=== PATIENT | male | born 1955 | race Caucasian/White ===

== ENCOUNTER → 2017-05-30 | Outpatient (CLI) | payer OTHER | END | disposition home or self-care (01) | LOC: ROC 10:02 | PROVIDERS: ATTEND Radiology Radiation Oncology | DX: C14.8 Malignant neoplasm of overlapping sites of lip, oral cavity and pharynx (principal) | CPT/HCPCS: 99214; G0463 ==

== ENCOUNTER → 2017-06-05 | Outpatient (CLI) | payer OTHER | END | disposition home or self-care (01) | LOC: PETCFH 08:48 | PROVIDERS: ATTEND Specialist | DX: C09.8 Malignant neoplasm of overlapping sites of tonsil (principal); R59.0 Localized enlarged lymph nodes; R91.1 Solitary pulmonary nodule; J98.11 Atelectasis | CPT/HCPCS: 78815; A9552 ==

== ENCOUNTER 2017-07-10 06:48 | Day surgery (SDC) | payer OTHER ==
[~2017-07-10] VITALS: Ht 175.3 cm; Wt 78.8 kg
[2017-07-10] MEDS ORDERED: SODIUM CHLORIDE 0.9% 1,000 ML IV SCH (07:14)
[2017-07-10] MEDS ORDERED: CEFAZOLIN PMX 1GM/50ML 50 ML ONE (07:16)
[2017-07-10] MEDS ORDERED: CEFAZOLIN PMX 1GM/50ML 50 ML IV ONE (07:30)
[2017-07-10 07:39] VITALS: BP 131/83
[2017-07-10] MEDS ORDERED: ASPI-496 PO (07:48)
[2017-07-10] MEDS ORDERED: ATEN25TA PO (07:48)
[2017-07-10] MEDS ORDERED: ATOR10TA9 PO (07:48)
[2017-07-10] MEDS ORDERED: NALOXONE 1 MG/ML, 2ML ONE (08:21)
[2017-07-10] MEDS ORDERED: MIDAZOLAM 1 MG/ML, 5ML ONE ×3 (08:21→08:24)
[2017-07-10] MEDS ORDERED: FLUMAZENIL 0.1 MG/1 ML, 5ML ONE (08:21)
[2017-07-10] MEDS ORDERED: FENTANYL PF 100 MCG/2ML ONE ×2 (08:21→08:24)
[2017-07-10] MEDS ORDERED: LIDOCAINE 2%, 20ML ONE (08:37)
[2017-07-10] MEDS ORDERED: LIDOCAINE GEL 2%, 5ML ONE (08:45)
[2017-07-10] MEDS ORDERED: VISIPAQUE 270 MG/ML, 50ML BOTTLE ONE (10:37)
== END 2017-07-10 12:15 ==
LOC: OUT 06:48
PROVIDERS: ATTEND Specialist
DX: C09.9 Malignant neoplasm of tonsil, unspecified (principal)
CPT/HCPCS: 49440; 99156; 99157; C1725; C1729; C1751; C1769; C1892; J0690; J2250; J3010; J3490; J7030; Q9966; J2310

== ENCOUNTER → 2017-08-19 | Outpatient (CLI) | payer OTHER ==
[~2017-08-19] MED LIST: ASPI-496 PO; ATEN25TA PO; ATOR10TA9 PO; ONDA8TAB12 PO; OXYC5CAP2 PO
== END | disposition home or self-care (01) ==
LOC: ROC 13:43
PROVIDERS: ATTEND Radiology Radiation Oncology
DX: Z08 Encounter for follow-up examination after completed treatment for malignant neoplasm (principal); C09.9 Malignant neoplasm of tonsil, unspecified
CPT/HCPCS: 99212; G0463

== ENCOUNTER → 2017-08-27 | Outpatient (CLI) | payer OTHER | END | disposition home or self-care (01) | LOC: RAD 15:31 | PROVIDERS: ATTEND Specialist | DX: R06.02 Shortness of breath (principal); C09.9 Malignant neoplasm of tonsil, unspecified; C77.9 Secondary and unspecified malignant neoplasm of lymph node, unspecified | CPT/HCPCS: 71046 ==

== ENCOUNTER → 2017-08-28 | Outpatient (CLI) | payer OTHER | END | disposition home or self-care (01) | LOC: ROC 10:04 | PROVIDERS: ATTEND Radiology Radiation Oncology | DX: C09.9 Malignant neoplasm of tonsil, unspecified (principal) | CPT/HCPCS: 99212; G0463 ==

== ENCOUNTER 2017-08-29 16:21 | Inpatient (IN) | payer OTHER ==
[~2017-08-29] VITALS: Ht 175.3 cm; Wt 74.3 kg
[~2017-08-29 16:21] MED LIST changes: -OMNIPAQUE 350 MG/ML, 100ML BOTTLE ONE
[2017-08-29] MEDS ORDERED: PLEASE ENTER HEIGHT AND WEIGHT MC SCH (17:00)
[2017-08-29] MEDS ORDERED: SODIUM CHLORIDE FLUSH 10ML SYR IVF ONE (17:00)
[2017-08-29 17:06] LABS: BASOPHILS # (AUTO) 0.02 x10^3/uL (0-0.1); BASOPHILS % (AUTO) 1 % (0-1); EOSINOPHILS % (AUTO) 2 % (1-7); LYMPHOCYTES # (AUTO) 0.35 x10^3/uL (1-3.4); LYMPHOCYTES % (AUTO) 7 % (22-44); MD NO; MEAN CORPUSCULAR HEMOGLOBIN 35.1 pg (27.5-34.5); MEAN CORPUSCULAR HGB CONC 34.1 g/dL (33.2-36.2); MEAN CORPUSCULAR VOLUME 102.9 fL (81-97); MONOCYTES # (AUTO) 0.35 x10^3/uL (0.2-0.8); MONOCYTES % (AUTO) 7 % (2-9); NEUTROPHILS # (AUTO) 3.89 x10^3/uL (1.8-6.8); NEUTROPHILS % (AUTO) 83 % (42-75); PLATELET COUNT 192 x10^3/uL (130-400); RED BLOOD COUNT 3.08 x10^6/uL (4.38-5.82); RED CELL DISTRIBUTION WIDTH 19.1 % (9.4-14.8)
[2017-08-29 17:14] LABS: ALBUMIN 2.3 g/dL (3.4-5.0); ANION GAP 7 mmol/L (5-15); CALCIUM 9.2 mg/dL (8.5-10.1); CHLORIDE 93 mmol/L (98-107); CREATININE 0.87 mg/dL (0.7-1.3)
[2017-08-29 17:24] LABS: INTERNATIONAL NORMALIZED RATIO 1.27 (0.93-1.1)
[2017-08-29] MEDS ORDERED: ENOXAPARIN 80 MG/0.8 ML SQ SCH (17:30)
[2017-08-29] MEDS ORDERED: SODIUM CHLORIDE FLUSH 10ML SYR IVF PRN (18:00)
[2017-08-29] MEDS ORDERED: SODIUM CHLORIDE 0.9% 1,000 ML IV SCH (18:17)
[2017-08-29] MEDS ORDERED: DOCUSATE 100 MG CAPSULE PO PRN (18:30)
[2017-08-29] MEDS ORDERED: ACETAMINOPHEN 325 MG TABLET PO PRN (18:30)
[2017-08-29] MEDS ORDERED: ONDANSETRON 2MG/ML, 2ML IVPush PRN (18:30)
[2017-08-29 19:06] LABS: FOLATE LEVEL 18.6 ng/mL (3.1-17.5); THYROID STIMULATING HORMONE 2.85 mIU/L (0.358-3.740)
[2017-08-29] MEDS: OXYcodone IR 5MG TABLET PO SCH ×2 (20:44→23:57)
[2017-08-29] MEDS: ONDANSETRON ODT 8 MG PO SCH (20:51)
[2017-08-29] MEDS: ENOXAPARIN 80 MG/0.8 ML SQ SCH (20:52)
[2017-08-29 21:00] VITALS: BP 115/73
[2017-08-29] MEDS: GUAIFENESIN/DM 200-20MG, 10ML UDC PO PRN (23:58)
[2017-08-30 00:02] LABS: MICROSCOPIC NOT IND
[2017-08-30 00:10] LABS: CULTURE INDICATED? NO
[2017-08-30 01:19] VITALS: BP 117/72
[2017-08-30] MEDS: OXYcodone IR 5MG TABLET PO SCH (03:24)
[2017-08-30 05:31] LABS: BASOPHILS # (AUTO) 0.01 x10^3/uL (0-0.1); BASOPHILS % (AUTO) 0 % (0-1); EOSINOPHILS # (AUTO) 0.13 x10^3/uL (0-0.4); EOSINOPHILS % (AUTO) 5 % (1-7); LYMPHOCYTES # (AUTO) 0.31 x10^3/uL (1-3.4); LYMPHOCYTES % (AUTO) 11 % (22-44); MD NO; MEAN CORPUSCULAR HEMOGLOBIN 35.5 pg (27.5-34.5); MEAN CORPUSCULAR HGB CONC 34.3 g/dL (33.2-36.2); MEAN CORPUSCULAR VOLUME 103.5 fL (81-97); MEAN PLATELET VOLUME 8.1 fL (7.4-10.4); MONOCYTES % (AUTO) 11 % (2-9); NEUTROPHILS # (AUTO) 2.04 x10^3/uL (1.8-6.8); NEUTROPHILS % (AUTO) 73 % (42-75); PLATELET COUNT 147 x10^3/uL (130-400); RED BLOOD COUNT 2.48 x10^6/uL (4.38-5.82); RED CELL DISTRIBUTION WIDTH 19.1 % (9.4-14.8)
[2017-08-30 05:37] LABS: ANION GAP 7 mmol/L (5-15); CALCIUM 9.1 mg/dL (8.5-10.1); CHLORIDE 97 mmol/L (98-107); CREATININE 0.76 mg/dL (0.7-1.3)
[2017-08-30] MEDS: GUAIFENESIN/DM 200-20MG, 10ML UDC PO PRN ×3 (06:15→20:19)
[2017-08-30] MEDS: ONDANSETRON ODT 8 MG PO SCH ×4 (06:15→20:19)
[2017-08-30] MEDS: OXYcodone 5 MG/5 ML ORAL.SOL UDC PO SCH ×6 (06:15→23:12)
[2017-08-30 07:41] VITALS: BP 118/74
[2017-08-30] MEDS: ENOXAPARIN 80 MG/0.8 ML SQ SCH ×2 (09:34→20:20)
[2017-08-30 16:43] VITALS: BP 127/77
[2017-08-30 20:05] VITALS: BP 113/72
[2017-08-30] MEDS: SODIUM CHLORIDE 0.9% 1,000 ML IV SCH (20:20)
[2017-08-30] MEDS: TEMAZEPAM 15 MG CAPSULE PO PRN (23:12)
[2017-08-31 01:07] VITALS: BP 120/70
[2017-08-31] MEDS: GUAIFENESIN/DM 200-20MG, 10ML UDC PO PRN ×3 (02:22→20:02)
[2017-08-31] MEDS: OXYcodone 5 MG/5 ML ORAL.SOL UDC PO SCH ×7 (02:22→23:13)
[2017-08-31] MEDS: SODIUM CHLORIDE 0.9% 1,000 ML IV SCH (05:14)
[2017-08-31] MEDS: ONDANSETRON ODT 8 MG PO SCH ×4 (05:16→21:30)
[2017-08-31 05:59] LABS: CHLORIDE 101 mmol/L (98-107); MEAN CORPUSCULAR HGB CONC 34.9 g/dL (33.2-36.2); MEAN PLATELET VOLUME 7.9 fL (7.4-10.4); PLATELET COUNT 172 x10^3/uL (130-400); RED BLOOD COUNT 2.42 x10^6/uL (4.38-5.82); RED CELL DISTRIBUTION WIDTH 19.2 % (9.4-14.8)
[2017-08-31 06:06] LABS: ANION GAP 8 mmol/L (5-15); CREATININE 0.72 mg/dL (0.7-1.3)
[2017-08-31 07:15] LABS: BASOPHILS # (AUTO) 0.01 x10^3/uL (0-0.1); BASOPHILS % (AUTO) 0 % (0-1); EOSINOPHILS # (AUTO) 0.08 x10^3/uL (0-0.4); EOSINOPHILS % (AUTO) 4 % (1-7); LYMPHOCYTES # (AUTO) 0.32 x10^3/uL (1-3.4); LYMPHOCYTES % (AUTO) 14 % (22-44); MD SCAN; MONOCYTES # (AUTO) 0.24 x10^3/uL (0.2-0.8); MONOCYTES % (AUTO) 11 % (2-9); NEUTROPHILS # (AUTO) 1.64 x10^3/uL (1.8-6.8); NEUTROPHILS % (AUTO) 71 % (42-75)
[2017-08-31 07:28] VITALS: BP 110/68
[2017-08-31] MEDS: ENOXAPARIN 80 MG/0.8 ML SQ SCH ×2 (08:33→21:31)
[2017-08-31] MEDS ORDERED: MAGNESIUM SULFATE PMX 2GM/50ML 50 ML IV ONE (11:30)
[2017-08-31 13:19] VITALS: BP 126/74
[2017-08-31] MEDS: METOPROLOL TARTRATE 25 MG TABLET GT SCH (17:17)
[2017-08-31 18:45] VITALS: BP 130/73
[2017-08-31] MEDS: TEMAZEPAM 15 MG CAPSULE PO PRN (23:13)
[2017-09-01] MEDS: OXYcodone 5 MG/5 ML ORAL.SOL UDC PO SCH ×7 (02:30→21:03)
[2017-09-01 02:38] VITALS: BP 124/75
[2017-09-01] MEDS: GUAIFENESIN/DM 200-20MG, 10ML UDC PO PRN (02:43)
[2017-09-01 04:43] LABS: MEAN CORPUSCULAR HEMOGLOBIN 35.1 pg (27.5-34.5); MEAN CORPUSCULAR VOLUME 103.2 fL (81-97); MEAN PLATELET VOLUME 7.6 fL (7.4-10.4); PLATELET COUNT 216 x10^3/uL (130-400); RED BLOOD COUNT 2.73 x10^6/uL (4.38-5.82); RED CELL DISTRIBUTION WIDTH 18.7 % (9.4-14.8)
[2017-09-01 04:55] LABS: ALBUMIN 2.1 g/dL (3.4-5.0); ANION GAP 8 mmol/L (5-15); CALCIUM 9.2 mg/dL (8.5-10.1); CHLORIDE 98 mmol/L (98-107)
[2017-09-01 04:59] LABS: BASOPHILS # (AUTO) 0.03 x10^3/uL (0-0.1); BASOPHILS % (AUTO) 1 % (0-1); EOSINOPHILS # (AUTO) 0.09 x10^3/uL (0-0.4); EOSINOPHILS % (AUTO) 3 % (1-7); LYMPHOCYTES # (AUTO) 0.43 x10^3/uL (1-3.4); LYMPHOCYTES % (AUTO) 17 % (22-44); MD SCAN; MONOCYTES # (AUTO) 0.32 x10^3/uL (0.2-0.8); MONOCYTES % (AUTO) 12 % (2-9); NEUTROPHILS # (AUTO) 1.74 x10^3/uL (1.8-6.8); NEUTROPHILS % (AUTO) 67 % (42-75)
[2017-09-01 05:00] LABS: % IRON SATURATION 63 % (20-55); ALANINE AMINOTRANSFERASE 49 U/L (12-78); ALKALINE PHOSPHATASE 58 U/L (45-117); BILIRUBIN,TOTAL 0.3 mg/dL (0.2-1.0); CREATININE 0.89 mg/dL (0.7-1.3); IRON LEVEL 98 mcg/dL (65-175); TOTAL IRON BINDING CAPACITY 155 mcg/dL (250-450); TOTAL PROTEIN 5.9 g/dL (6.4-8.2)
[2017-09-01] MEDS: ONDANSETRON ODT 8 MG PO SCH ×4 (05:37→21:03)
[2017-09-01] MEDS: METOPROLOL TARTRATE 25 MG TABLET GT SCH ×2 (05:38→17:23)
[2017-09-01 06:48] VITALS: BP 119/73
[2017-09-01] MEDS: ENOXAPARIN 80 MG/0.8 ML SQ SCH ×2 (08:19→21:03)
[2017-09-01 13:20] VITALS: BP 131/77
[2017-09-01] MEDS ORDERED: MAGNESIUM SULFATE PMX 4GM/100M 100 ML IV ONE (17:00)
[2017-09-01] MEDS: WARFARIN 7.5 MG TABLET PO-COUM SCH (17:24)
[2017-09-01 18:36] VITALS: BP 112/73
[2017-09-02 01:33] VITALS: BP 111/69
[2017-09-02] MEDS: OXYcodone 5 MG/5 ML ORAL.SOL UDC PO SCH ×4 (02:48→21:11)
[2017-09-02 04:53] LABS: BASOPHILS # (AUTO) 0.01 x10^3/uL (0-0.1); BASOPHILS % (AUTO) 0 % (0-1); EOSINOPHILS # (AUTO) 0.09 x10^3/uL (0-0.4); EOSINOPHILS % (AUTO) 3 % (1-7); LYMPHOCYTES # (AUTO) 0.61 x10^3/uL (1-3.4); LYMPHOCYTES % (AUTO) 18 % (22-44); MD NO; MEAN CORPUSCULAR HEMOGLOBIN 35.6 pg (27.5-34.5); MEAN CORPUSCULAR HGB CONC 34.4 g/dL (33.2-36.2); MEAN CORPUSCULAR VOLUME 103.5 fL (81-97); MEAN PLATELET VOLUME 7.7 fL (7.4-10.4); MONOCYTES # (AUTO) 0.52 x10^3/uL (0.2-0.8); MONOCYTES % (AUTO) 15 % (2-9); NEUTROPHILS # (AUTO) 2.17 x10^3/uL (1.8-6.8); NEUTROPHILS % (AUTO) 64 % (42-75); PLATELET COUNT 242 x10^3/uL (130-400); RED BLOOD COUNT 2.76 x10^6/uL (4.38-5.82); RED CELL DISTRIBUTION WIDTH 19.6 % (9.4-14.8)
[2017-09-02 05:01] LABS: INTERNATIONAL NORMALIZED RATIO 1.15 (0.93-1.1); PROTHROMBIN TIME 11.8 Seconds (9.6-11.5)
[2017-09-02 05:13] LABS: ANION GAP 6 mmol/L (5-15); CALCIUM 9.5 mg/dL (8.5-10.1); CHLORIDE 99 mmol/L (98-107)
[2017-09-02 05:20] LABS: CREATININE 0.88 mg/dL (0.7-1.3)
[2017-09-02] MEDS: ONDANSETRON ODT 8 MG PO SCH ×4 (06:00→21:00)
[2017-09-02] MEDS: METOPROLOL TARTRATE 25 MG TABLET GT SCH ×2 (06:00→18:09)
[2017-09-02 07:47] VITALS: BP 120/74
[2017-09-02] MEDS: ENOXAPARIN 80 MG/0.8 ML SQ SCH ×2 (08:46→21:11)
[2017-09-02] MEDS ORDERED: VANCOMYCIN PMX 1GM/200ML 200 ML IV ONE (09:00)
[2017-09-02] MEDS: PIPERACILLIN/TAZO/PMX 3.375GM 50 ML IV SCH ×3 (09:53→21:11)
[2017-09-02] MEDS: LACTOBACILLUS 1GM/ PACKET PO SCH ×3 (09:53→21:11)
[2017-09-02 13:58] VITALS: BP 121/76
[2017-09-02] MEDS: WARFARIN 7.5 MG TABLET PO-COUM SCH (18:10)
[2017-09-02 18:32] VITALS: BP 125/67
[2017-09-03 00:52] VITALS: BP 114/75
[2017-09-03] MEDS: OXYcodone 5 MG/5 ML ORAL.SOL UDC PO SCH ×4 (03:08→20:11)
[2017-09-03] MEDS: PIPERACILLIN/TAZO/PMX 3.375GM 50 ML IV SCH ×4 (03:08→20:11)
[2017-09-03 05:48] LABS: INTERNATIONAL NORMALIZED RATIO 1.73 (0.93-1.1); PROTHROMBIN TIME 17.6 Seconds (9.6-11.5)
[2017-09-03] MEDS: ONDANSETRON ODT 8 MG PO SCH ×4 (06:00→20:11)
[2017-09-03 06:09] VITALS: BP 116/74
[2017-09-03] MEDS: METOPROLOL TARTRATE 25 MG TABLET GT SCH ×2 (06:10→18:46)
[2017-09-03 07:18] VITALS: BP 113/70
[2017-09-03] MEDS: MAGNESIUM OXIDE 400 MG TABLET PO SCH ×3 (10:19→20:11)
[2017-09-03] MEDS: LACTOBACILLUS 1GM/ PACKET PO SCH ×3 (10:19→20:10)
[2017-09-03] MEDS: ENOXAPARIN 80 MG/0.8 ML SQ SCH ×2 (10:20→20:34)
[2017-09-03] MEDS ORDERED: BISACODYL 10 MG SUPP PR PRN (13:30)
[2017-09-03] MEDS ORDERED: POLYETHYLENE GLYCOL 17 GM PACKET NG PRN (13:30)
[2017-09-03 13:37] VITALS: BP 117/70
[2017-09-03 18:40] VITALS: BP 121/83
[2017-09-03] MEDS: WARFARIN 7.5 MG TABLET PO-COUM SCH (18:46)
[2017-09-04 01:06] VITALS: BP 113/74
[2017-09-04] MEDS: OXYcodone 5 MG/5 ML ORAL.SOL UDC PO SCH ×4 (02:51→22:18)
[2017-09-04] MEDS: PIPERACILLIN/TAZO/PMX 3.375GM 50 ML IV SCH ×4 (02:52→22:18)
[2017-09-04 05:18] LABS: INTERNATIONAL NORMALIZED RATIO 2.94 (0.93-1.1); PROTHROMBIN TIME 29.6 Seconds (9.6-11.5)
[2017-09-04] MEDS: ONDANSETRON ODT 8 MG PO SCH ×4 (05:50→22:18)
[2017-09-04 05:51] VITALS: BP 103/61
[2017-09-04] MEDS: METOPROLOL TARTRATE 25 MG TABLET GT SCH ×2 (05:53→17:20)
[2017-09-04] MEDS: MAGNESIUM OXIDE 400 MG TABLET PO SCH (09:00)
[2017-09-04 09:07] VITALS: BP 122/80
[2017-09-04] MEDS: LACTOBACILLUS 1GM/ PACKET PO SCH ×3 (09:12→22:18)
[2017-09-04 14:46] VITALS: BP 119/78
[2017-09-04] MEDS: WARFARIN 2.5 MG TABLET PO-COUM SCH (17:19)
[2017-09-04 20:56] VITALS: BP 114/76
[2017-09-05 02:46] VITALS: BP 103/70
[2017-09-05] MEDS: PIPERACILLIN/TAZO/PMX 3.375GM 50 ML IV SCH ×4 (05:06→21:36)
[2017-09-05] MEDS: OXYcodone 5 MG/5 ML ORAL.SOL UDC PO SCH ×4 (05:06→21:36)
[2017-09-05] MEDS: METOPROLOL TARTRATE 25 MG TABLET GT SCH ×2 (05:06→18:09)
[2017-09-05] MEDS: ONDANSETRON ODT 8 MG PO SCH ×2 (05:06→11:39)
[2017-09-05 06:27] LABS: INTERNATIONAL NORMALIZED RATIO 2.75 (0.93-1.1); PROTHROMBIN TIME 27.8 Seconds (9.6-11.5)
[2017-09-05 07:07] VITALS: BP 111/74
[2017-09-05] MEDS: LACTOBACILLUS 1GM/ PACKET PO SCH (09:00)
[2017-09-05] MEDS ORDERED: LACTOBACILLUS CHEW TABLET PEG SCH (10:30)
[2017-09-05 13:53] VITALS: BP 115/72
[2017-09-05] MEDS ORDERED: ONDANSETRON ODT 8 MG PO PRN (14:00)
[2017-09-05] MEDS ORDERED: OXYcodone 5 MG/5 ML ORAL.SOL UDC PEG PRN (15:30)
[2017-09-05] MEDS ORDERED: POLYETHYLENE GLYCOL 17 GM PACKET NG PRN (17:00)
[2017-09-05] MEDS: WARFARIN 2.5 MG TABLET PO-COUM SCH (18:08)
[2017-09-05 19:13] VITALS: BP 109/65
[2017-09-06 01:43] VITALS: BP 105/70
[2017-09-06] MEDS: PIPERACILLIN/TAZO/PMX 3.375GM 50 ML IV SCH ×4 (03:31→21:52)
[2017-09-06] MEDS: OXYcodone 5 MG/5 ML ORAL.SOL UDC PO SCH ×4 (03:36→21:52)
[2017-09-06] MEDS: METOPROLOL TARTRATE 25 MG TABLET GT SCH ×2 (06:28→17:40)
[2017-09-06 06:31] LABS: INTERNATIONAL NORMALIZED RATIO 2.07 (0.93-1.1)
[2017-09-06 06:50] LABS: BASOPHILS # (AUTO) 0.01 x10^3/uL (0-0.1); BASOPHILS % (AUTO) 0 % (0-1); EOSINOPHILS # (AUTO) 0.21 x10^3/uL (0-0.4); EOSINOPHILS % (AUTO) 4 % (1-7); LYMPHOCYTES # (AUTO) 0.95 x10^3/uL (1-3.4); LYMPHOCYTES % (AUTO) 18 % (22-44); MD NO; MEAN CORPUSCULAR HEMOGLOBIN 36.1 pg (27.5-34.5); MEAN CORPUSCULAR HGB CONC 34.2 g/dL (33.2-36.2); MEAN CORPUSCULAR VOLUME 105.5 fL (81-97); MONOCYTES # (AUTO) 0.73 x10^3/uL (0.2-0.8); MONOCYTES % (AUTO) 14 % (2-9); NEUTROPHILS # (AUTO) 3.38 x10^3/uL (1.8-6.8); NEUTROPHILS % (AUTO) 64 % (42-75); PLATELET COUNT 306 x10^3/uL (130-400); RED BLOOD COUNT 2.72 x10^6/uL (4.38-5.82); RED CELL DISTRIBUTION WIDTH 19.5 % (9.4-14.8)
[2017-09-06 08:02] VITALS: BP 115/74
[2017-09-06] MEDS: LACTOBACILLUS CHEW TABLET PEG SCH (10:17)
[2017-09-06 14:00] VITALS: BP 110/71
[2017-09-06] MEDS: WARFARIN 2.5 MG TABLET PO-COUM SCH (17:40)
[2017-09-06 20:16] VITALS: BP 116/73
[2017-09-06] MEDS: GUAIFENESIN/DM 200-20MG, 10ML UDC PO PRN (21:51)
[2017-09-07 01:42] VITALS: BP 112/68
[2017-09-07] MEDS: PIPERACILLIN/TAZO/PMX 3.375GM 50 ML IV SCH ×3 (03:49→16:07)
[2017-09-07] MEDS: OXYcodone 5 MG/5 ML ORAL.SOL UDC PO SCH ×4 (03:49→21:17)
[2017-09-07] MEDS: METOPROLOL TARTRATE 25 MG TABLET GT SCH ×2 (06:26→18:25)
[2017-09-07 06:40] VITALS: BP 110/72
[2017-09-07 07:36] VITALS: BP 114/69
[2017-09-07] MEDS: LACTOBACILLUS CHEW TABLET PEG SCH (10:07)
[2017-09-07] MEDS: GUAIFENESIN/DM 200-20MG, 10ML UDC PO PRN ×2 (10:07→21:23)
[2017-09-07 15:42] VITALS: BP 118/77
[2017-09-07 18:13] LABS: INTERNATIONAL NORMALIZED RATIO 1.76 (0.93-1.1); PROTHROMBIN TIME 17.9 Seconds (9.6-11.5)
[2017-09-07] MEDS ORDERED: WARFARIN 2 MG TABLET PO-COUM ONE (18:19)
[2017-09-07] MEDS ORDERED: WARFARIN 2 MG TABLET PO-COUM SCH (18:30)
[2017-09-07 20:00] VITALS: BP 112/71
[2017-09-07] MEDS: SULFAMETH./TRIMETHOPRIM DS 800MG/160MG TABLET PO SCH (21:16)
[2017-09-08 03:59] VITALS: BP 117/78
[2017-09-08] MEDS: GUAIFENESIN/DM 200-20MG, 10ML UDC PO PRN (04:27)
[2017-09-08] MEDS: OXYcodone 5 MG/5 ML ORAL.SOL UDC PO SCH ×2 (04:27→10:38)
[2017-09-08] MEDS: METOPROLOL TARTRATE 25 MG TABLET GT SCH (04:28)
[2017-09-08 05:39] LABS: INTERNATIONAL NORMALIZED RATIO 1.82 (0.93-1.1); PROTHROMBIN TIME 18.5 Seconds (9.6-11.5)
[2017-09-08 07:08] VITALS: BP 113/66
[2017-09-08] MEDS ORDERED: ACID1TAB7 PEG (09:10)
[2017-09-08] MEDS ORDERED: POLY17PO5 NG (09:10)
[2017-09-08] MEDS ORDERED: METO25TA35 GT (09:10)
[2017-09-08] MEDS ORDERED: WARF5TAB7 PO (09:10)
[2017-09-08] MEDS ORDERED: SULF-169 PO (09:10)
[2017-09-08] MEDS: SULFAMETH./TRIMETHOPRIM DS 800MG/160MG TABLET PO SCH (10:38)
[2017-09-08] MEDS: LACTOBACILLUS CHEW TABLET PEG SCH (10:38)
[2017-09-08 13:15] VITALS: BP 112/71
== END 2017-09-08 16:11 | disposition home health service (06) | DRG 177 ==
LOC: ED 17:36 → EDIP 17:37 → ED 18:09 → 4WST 18:32
PROVIDERS: ADMIT Hospitalist; ATTEND Internal Medicine
DX: J15.211 Pneumonia due to Methicillin susceptible Staphylococcus aureus (principal); E43 Unspecified severe protein-calorie malnutrition; I26.99 Other pulmonary embolism without acute cor pulmonale; E83.42 Hypomagnesemia; R13.10 Dysphagia, unspecified; E87.1 Hypo-osmolality and hyponatremia; Z93.1 Gastrostomy status; J98.11 Atelectasis; D53.9 Nutritional anemia, unspecified; J15.0 Pneumonia due to Klebsiella pneumoniae; J15.6 Pneumonia due to other Gram-negative bacteria; G89.29 Other chronic pain; Z79.01 Long term (current) use of anticoagulants; Z80.1 Family history of malignant neoplasm of trachea, bronchus and lung; Z82.49 Family history of ischemic heart disease and other diseases of the circulatory system; Z85.818 Personal history of malignant neoplasm of other sites of lip, oral cavity, and pharynx; Z92.3 Personal history of irradiation; Z68.24 Body mass index [BMI] 24.0-24.9, adult
CPT/HCPCS: 36415; 71046; 80048; 80053; 81003; 82040; 82607; 82746; 83540; 83550; 83735; 84100; 84145; 84443; 85025; 85610; 85730; 87040; 87070; 87077; 87186; 87205; 93005; 93306; 99285; J1650; J2543; J3370; Q0162; J3475; J7030

== ENCOUNTER → 2017-08-29 | Outpatient (CLI) | payer OTHER ==
[~2017-08-29] MED LIST changes: +OMNIPAQUE 350 MG/ML, 100ML BOTTLE ONE
== END | disposition home or self-care (01) ==
LOC: CFH 14:34
PROVIDERS: ATTEND Specialist
DX: I26.99 Other pulmonary embolism without acute cor pulmonale (principal); Z93.1 Gastrostomy status; C09.9 Malignant neoplasm of tonsil, unspecified
CPT/HCPCS: 71275; 82565; Q9967

== ENCOUNTER → 2017-09-13 | Outpatient (CLI) | payer OTHER ==
[~2017-09-13] MED LIST changes: +ACID1TAB7 PEG; +METO25TA35 GT; +POLY17PO5 NG; +SULF-169 PO; +WARF5TAB7 PO
== END | disposition home or self-care (01) ==
LOC: ROC 10:32
PROVIDERS: ATTEND Radiology Radiation Oncology
DX: C09.0 Malignant neoplasm of tonsillar fossa (principal)
CPT/HCPCS: 99212; G0463

== ENCOUNTER → 2017-09-27 | Outpatient (CLI) | payer OTHER | END | disposition home or self-care (01) | LOC: ROC 13:00 | PROVIDERS: ATTEND Radiology Radiation Oncology | DX: C09.9 Malignant neoplasm of tonsil, unspecified (principal) | CPT/HCPCS: 99212; G0463 ==

== ENCOUNTER → 2017-11-15 | Outpatient (CLI) | payer OTHER ==
[~2017-11-15] MED LIST changes: +OMNIPAQUE 350 MG/ML, 150 ML BOTTLE ONE; +WARF-36 PO; -WARF5TAB7 PO
== END | disposition home or self-care (01) ==
LOC: CFH 08:50
PROVIDERS: ATTEND Specialist
DX: Z51.11 Encounter for antineoplastic chemotherapy (principal); C09.9 Malignant neoplasm of tonsil, unspecified; C77.9 Secondary and unspecified malignant neoplasm of lymph node, unspecified
CPT/HCPCS: 70491; 71260; 74160; Q9967

== ENCOUNTER → 2017-11-21 | Outpatient (CLI) | payer OTHER ==
[~2017-11-21] MED LIST changes: -OMNIPAQUE 350 MG/ML, 150 ML BOTTLE ONE
== END | disposition home or self-care (01) ==
LOC: RAD 09:54
PROVIDERS: ATTEND Radiology Radiation Oncology
DX: C09.9 Malignant neoplasm of tonsil, unspecified (principal); R13.10 Dysphagia, unspecified; G31.84 Mild cognitive impairment of uncertain or unknown etiology
CPT/HCPCS: 74230

== ENCOUNTER → 2018-01-31 | Outpatient (CLI) | payer OTHER | END | disposition home or self-care (01) | LOC: RAD 08:48 | PROVIDERS: ATTEND Radiology Radiation Oncology | DX: R13.12 Dysphagia, oropharyngeal phase (principal) | CPT/HCPCS: 74230 ==

== ENCOUNTER → 2018-04-09 | Outpatient (CLI) | payer OTHER | END | disposition home or self-care (01) | LOC: ROC 08:58 | PROVIDERS: ATTEND Radiology Radiation Oncology | DX: Z02.9 Encounter for administrative examinations, unspecified (principal) ==

== ENCOUNTER 2018-07-11 10:10 | Day surgery (SDC) | payer OTHER ==
[~2018-07-11] VITALS: Ht 175.3 cm; Wt 71.4 kg
[~2018-07-11 10:10] MED LIST changes: +FLUT16SP NAS; +LIDOCAINE 1%-EPI 1:100K, 30ML ONE; +LORA10TA37 PO; +PROP20TA PO
[2018-07-11 10:46] VITALS: BP 122/86
[2018-07-11] MEDS ORDERED: LACTATED RINGERS 1,000 ML IV SCH (10:46)
[2018-07-11 11:31] LABS: INTERNATIONAL NORMALIZED RATIO 1.14 (0.93-1.1)
[2018-07-11] MEDS ORDERED: OXYMETAZOLINE NASAL SPRAY 0.05%, 15ML ONE (13:04)
[2018-07-11] MEDS ORDERED: LIDOCAINE 4%, 4 ML SYR/CANN TP ONE (13:17)
[2018-07-11] MEDS ORDERED: FENTANYL PF 100 MCG/2ML ONE (13:17)
[2018-07-11] MEDS ORDERED: LIDOCAINE-MPF 2% ,5ML ONE (13:17)
[2018-07-11] MEDS ORDERED: ACETAMINOPHEN 325 MG TABLET PO PRN (14:00)
[2018-07-11] MEDS ORDERED: FENTANYL PF 100 MCG/2ML IV PRN (14:00)
[2018-07-11] MEDS ORDERED: MEPERIDINE/PF 25MG/0.5ML IVPush PRN (14:00)
[2018-07-11] MEDS ORDERED: ONDANSETRON 2MG/ML, 2ML IV PRN (14:00)
[2018-07-11] MEDS ORDERED: DIAZEPAM 5 MG/ML, 2ML IVPush PRN (14:00)
[2018-07-11] MEDS ORDERED: ONDANSETRON ODT 8 MG PO PRN (14:00)
[2018-07-11] MEDS ORDERED: HYDROmorphone 2 MG/ML, 1ML IVPush PRN (14:00)
[2018-07-11] MEDS ORDERED: OXYcodone 5 MG/5 ML ORAL.SOL UDC PO PRN (14:00)
[2018-07-11] MEDS ORDERED: NEOSTIGMINE 1 MG/ML, 10ML ONE (14:02)
[2018-07-11] MEDS ORDERED: SUCCINYLCHOLINE 20 MG/ML, 10ML ONE (14:02)
[2018-07-11] MEDS ORDERED: DEXAMETHASONE 4 MG/ML, 1ML ONE (14:02)
[2018-07-11] MEDS ORDERED: ROCURONIUM 10MG/ML,5ML ONE (14:02)
[2018-07-11] MEDS ORDERED: PROPOFOL 10 MG/ML, 20ML ONE (14:02)
[2018-07-11] MEDS ORDERED: ONDANSETRON 2MG/ML, 2ML ONE (14:02)
[2018-07-11] MEDS ORDERED: NALOXONE 0.4 MG/ML, 1ML ONE (14:02)
[2018-07-11] MEDS ORDERED: GLYCOPYRROLATE 0.2MG/1ML, 5ML ONE (14:02)
[2018-07-11] MEDS ORDERED: CEFAZOLIN 1,000 MG ONE (14:02)
== END 2018-07-11 15:35 | disposition home or self-care (01) ==
LOC: OUT 10:10
PROVIDERS: ATTEND Otolaryngology
DX: K22.2 Esophageal obstruction (principal); Z79.01 Long term (current) use of anticoagulants
CPT/HCPCS: 36415; 43235; 43450; 85610; 85730; J0330; J0690; J1100; J2310; J2405; J2704; J2710; J3010; J3490; J7120

== ENCOUNTER → 2018-08-07 | Outpatient (CLI) | payer OTHER ==
[~2018-08-07] MED LIST changes: -LIDOCAINE 1%-EPI 1:100K, 30ML ONE
== END | disposition home or self-care (01) ==
LOC: ROC 07:49
PROVIDERS: ATTEND Radiology Radiation Oncology
DX: C09.9 Malignant neoplasm of tonsil, unspecified (principal)
CPT/HCPCS: 99213; G0463

== ENCOUNTER → 2018-08-14 | Day surgery (SDC) | payer OTHER | END | disposition home or self-care (01) | LOC: RAD 12:49 | PROVIDERS: ATTEND Radiology Radiation Oncology | DX: Z02.9 Encounter for administrative examinations, unspecified (principal) ==

== ENCOUNTER 2019-12-21 08:11 | Outpatient (CLI) | payer OTHER ==
[~2019-12-21 08:11] MED LIST changes: -FLUT16SP NAS; +FLUT16SP24 NAS
== END 2019-12-21 23:59 | disposition home or self-care (01) ==
LOC: ROC 08:11
PROVIDERS: ATTEND Radiology Radiation Oncology
DX: Z08 Encounter for follow-up examination after completed treatment for malignant neoplasm (principal); Z85.818 Personal history of malignant neoplasm of other sites of lip, oral cavity, and pharynx
CPT/HCPCS: 99212; G0463; G2012

== ENCOUNTER → 2020-12-21 | Outpatient (CLI) | payer OTHER | END | disposition home or self-care (01) | LOC: ROC 09:24 | PROVIDERS: ATTEND Radiology Radiation Oncology | DX: Z51.0 Encounter for antineoplastic radiation therapy (principal); C09.9 Malignant neoplasm of tonsil, unspecified | CPT/HCPCS: 99212; G0463 ==